=== PATIENT | male | born 1970 | race Caucasian/White ===

== ENCOUNTER 2018-08-16 16:14 | Outpatient (REF) | payer OTHER, SELFPAY ==
[2018-08-16 22:18] LABS: ALT 61 U/L (12-78); AST 40 U/L (15-37); Albumin 4.5 g/dL (3.4-5.0); Alkaline Phosphatase 93 U/L (46-116); Anion Gap 10.4 mmol/L (3-11); BUN 16 mg/dL (7-18); Bilirubin, Total 0.3 mg/dL (0.2-1.0); CO2 24.6 mmol/L (21.0-32.0); CREATININE 1.24 mg/dL (0.70-1.30); Calcium 9.3 mg/dL (8.5-10.1); Chloride 103 mmol/L (98-107); Glucose 81 mg/dL (70-100); Potassium 4.1 mmol/L (3.5-5.1); Sodium 138 mmol/L (136-145); Total Protein 7.7 g/dL (6.4-8.2); Uric Acid 7.7 mg/dL (3.5-7.2)
== END 2018-08-16 16:34 ==
LOC: NCHCN 16:14
PROVIDERS: PCP Internal Medicine; Visit Provider Internal Medicine
DX: M10.9 Gout, unspecified (principal); I10 Essential (primary) hypertension
CPT/HCPCS: 80053; 84550

== ENCOUNTER 2025-02-27 12:57 | Outpatient (REF) | payer BC, SELFPAY ==
[2025-02-27 17:15] LABS: COMMENT (LAB VIEW ONLY) 81.73 mg/dL; Microalb ug/mg Crea 9.9 ug/mg Cr
== END 2025-02-27 12:58 | disposition home or self-care (01) ==
LOC: NCHCN 12:57
PROVIDERS: PCP Internal Medicine; Visit Provider Family Medicine
DX: E11.9 Type 2 diabetes mellitus without complications (principal)
CPT/HCPCS: 82043; 82570

== ENCOUNTER 2025-03-27 16:11 | Outpatient (REF) | payer BC, SELFPAY ==
[2025-03-27 15:32] LABS: ALT 43 U/L (16-63); AST 39 U/L (15-37)
== END 2025-03-27 16:12 | disposition home or self-care (01) ==
LOC: NCHCN 16:11
PROVIDERS: PCP Internal Medicine; Visit Provider Family Medicine
DX: E78.5 Hyperlipidemia, unspecified (principal)
CPT/HCPCS: 84450; 84460

== ENCOUNTER 2025-05-31 09:17 | Outpatient (REF) | payer BC, SELFPAY ==
[2025-05-31 16:10] LABS: Calculated LDL 114 mg/dL (<100); Cholesterol 187 mg/dL (<200); HDL Cholesterol 53 mg/dL (>or=40); Triglyceride 103 mg/dL (<150)
== END 2025-05-31 09:18 | disposition home or self-care (01) ==
LOC: NCHCN 09:17
PROVIDERS: PCP Family Medicine; Visit Provider Family Medicine
DX: E78.5 Hyperlipidemia, unspecified (principal)
CPT/HCPCS: 80061